=== PATIENT | female | born 1970 | race Two or more races ===

== ENCOUNTER 2023-10-24 09:48 | Emergency (ER) | payer OTHER ==
[~2023-10-24] VITALS: Ht 157.5 cm; Wt 83.8 kg
[2023-10-24 10:19] LABS: Basophils # (auto) 0.1 10 ^3/uL (0-0.2); Basophils % (auto) 0.7 % (0.0-2.0); Eosinophils # (auto) 0.4 10 ^3/uL (0-0.8); Eosinophils % (auto) 4.2 % (0.0-7.0); Hematocrit 41.6 % (36.0-46.0); Hemoglobin 13.7 g/dL (12.2-16.2); Lymphocytes # (auto) 2.4 10 ^3/uL (0.4-5.4); Lymphocytes % (auto) 28.3 % (10.0-50.0); Mean Corpuscular Hemoglobin 27.9 pg (28.0-32.0); Mean Corpuscular Hgb Conc. 32.9 g/dL (32.0-36.0); Mean Corpuscular Volume 84.6 fL (80.0-100.0); Monocytes # (auto) 0.6 10 ^3/uL (0-1.3); Monocytes % (auto) 7.2 % (0.0-12.0); Neutrophils % (auto) 59.6 % (37.0-80.0); Red Blood Cells 4.92 10^6/uL (4.0-5.20); Red Cell Distribution Width 13.7 % (11.8-14.3); White Blood Cell 8.4 10^3/uL (4.4-10.8)
[2023-10-24] MEDS ORDERED: methylPREDNISolone SOD SUCC 125 MG/2 ML VL IV ONE (10:30)
[2023-10-24 10:53] LABS: Alanine Aminotransferase 34 U/L (7-40); Albumin 4.6 g/dL (3.2-4.8); Alkaline Phosphatase 84 U/L (46-116); Anion Gap 4 (5-15); Aspartate Aminotransferase 18 U/L (13-40); BUN/Creatinine Ratio 13.6 (10.0-20.0); Bilirubin, Total 0.3 mg/dL (0.2-1.0); Blood Urea Nitrogen 9 mg/dL (9-23); Calcium 9.1 mg/dL (8.7-10.4); Carbon Dioxide 29 mmol/L (20-30); Chloride 108 mmol/L (98-107); Glucose 90 mg/dL (74-106); Magnesium 2.1 mg/dL (1.6-2.6); Potassium 3.9 mmol/L (3.5-5.1); Sodium 141 mmol/L (136-145); Total Protein 7.2 g/dL (5.7-8.2)
[2023-10-24 11:08] LABS: INR 0.96 (0.9-1.15); Prothrombin Time 10.1 sec (9.3-11.8)
[2023-10-24] MEDS ORDERED: PANT40TA2 PO (11:40)
[2023-10-24] MEDS ORDERED: PRED20TA2 PO (11:40)
[2023-10-24] MEDS ORDERED: PRED10TA PO (11:40)
[2023-10-24 13:45] VITALS: BP 122/74; PULSE 62; RESP 16; TEMP 97.6; O2SAT 99
== END 2023-10-24 13:47 | disposition home or self-care (01) ==
LOC: ER 09:48
DX: G51.0 Bell's palsy (principal); R51.9 Headache, unspecified; R42 Dizziness and giddiness; R06.02 Shortness of breath; Z90.49 Acquired absence of other specified parts of digestive tract; Z79.899 Other long term (current) drug therapy; Z79.01 Long term (current) use of anticoagulants
CPT/HCPCS: 36415; 70450; 71045; 80053; 83735; 83880; 84484; 85025; 85610; 85730; 93005; 96374; 99285; J2930